=== PATIENT | male | born 1990 | race African-American/Black ===

== ENCOUNTER 2017-01-12 21:00 | Emergency (ER) | payer MEDICAID, OTHER ==
[~2017-01-12] VITALS: Ht 170.2 cm; Wt 75.3 kg
[2017-01-12] MEDS ORDERED: NKM (21:09)
[2017-01-12] MEDS ORDERED: ANUSOL-HC30 GM RC (21:43)
--- NOTE | 2017-01-12 21:43 | Emergency Room Report ---
History of Present Illness General Chief Complaint: Skin Rash/Abscess Source: Patient Present Illness HPI Is a 26-year-old male with no significant past medical history. He presents with a mass and pain to the rectal area. Onset for one day. Denies any fever chills denies any nausea vomiting. He has a history of hemorrhoid and occasionally has blood with wiping. No other complaint. No fever or chills. Worse with sitting. Worse with movement. Allergies: Coded Allergies: No Known Allergies (Unverified , 01/12/17) Patient History Past Medical History: see triage record, old chart reviewed Past Surgical History: none Pertinent Family History: none Social History: Denies: drug use Immunizations: other Reviewed Nursing Documentation: PMH: Agreed, PSxH: Agreed Nursing Documentation-PMH Past Medical History: No History, Except For Hx Seizures: Yes Review of Systems Eye: Denies: blurred vision, eye pain ENT: Denies: ear pain, nose congestion, throat swelling Respiratory: Denies: cough, shortness of breath Cardiovascular: Denies: chest pain, palpitations Gastrointestinal: Denies: abdominal pain, diarrhea, nausea, vomiting Musculoskeletal: Denies: back pain, joint pain Skin: Denies: rash Neurological: Denies: headache, numbness Endocrine: Denies: increased thirst, increased urine Hematologic/Lymphatic: Denies: easy bruising All Other Systems: negative except mentioned in HPI Physical Exam Vital Signs Date Time Temp Pulse Resp B/P Pulse Ox O2 Delivery O2 Flow Rate FiO2 01/12/17 21:05 98.8 112 16 118/75 97 Room Air vital tachycardia Sp02 EP Interpretation: reviewed, normal General Appearance: well appearing, no apparent distress, alert Head: normocephalic, atraumatic Eyes: bilateral eye EOMI, bilateral eye PERRL ENT: hearing grossly normal, normal pharynx Neck: full range of motion, supple, no meningismus Respiratory: chest non-tender, lungs clear, normal breath sounds Cardiovascular #1: regular rate, rhythm, no murmur Gastrointestinal: normal bowel sounds, non tender, no mass, no organomegaly, no bruit, non-distended Rectal: other - Large hemorrhoid at the 3:00 position. Measure about 2 cm. tender to palpation. Musculoskeletal: back normal, gait/station normal, normal range of motion Psychiatric: mood/affect normal Skin: warm/dry Procedures Incision and Drainage Incision and Drainage : Consent: Verbal Site: Buttock Blade Size: 11 I & D Procedure: betadine prep Anesthesia: 1% Lidocaine Volume Anesthetic (ccs): 1 Patient Tolerated: Well Complications: None Progress Area clean with Betadine. Local anesthetic with 1% lidocaine. I made a 1 cm incision and expressed several small thrombosed clots. Patient tolerated procedure without a problem. Medical Decision Making Diagnostic Impression: Primary Impression: Thrombosed external hemorrhoid ER Course Patient with a thrombosed external hemorrhoid. No evidence of abscess. No evidence of deep infection. We'll discharge home. Last Vital Signs Date Time Temp Pulse Resp B/P Pulse Ox O2 Delivery O2 Flow Rate FiO2 01/12/17 21:05 98.8 112 16 118/75 97 Room Air Status: improved Disposition: HOME, SELF-CARE Condition: Stable Scripts Hydrocortisone Hc 2.5% Cream (ANUSOL-HC 2.5% CREAM) Y Cr 30 GM RC BID, #15 GM Prov: ZAY BOWERS M.D. 01/12/17 Referrals: NOT CHOSEN IPA/,REFERRING (PCP) Additional Instructions: Followup with your DrMiroslava in 7 days. You may need a referral to see a colorectal surgeon. Return if symptom worsen. ZAY BOWERS M.D. January 12, 2017 21:43
[2017-01-12 22:07] VITALS: BP 134/85
== END 2017-01-12 21:50 | disposition home or self-care (01) ==
LOC: EMR 21:26
DX: K64.5 Perianal venous thrombosis (principal)
CPT/HCPCS: 10060; 99283

== ENCOUNTER 2017-01-13 04:31 | Emergency (ER) | payer MEDICAID ==
[~2017-01-13] VITALS: Ht 170.2 cm; Wt 75.3 kg
[~2017-01-13 04:31] MED LIST: ANUSOL-HC30 GM RC; NKM
--- NOTE | 2017-01-13 05:18 | Emergency Room Report ---
History of Present Illness General Chief Complaint: Skin Rash/Abscess Source: Patient Present Illness HPI Is a 26-year-old male whom I saw earlier this evening for thrombosed hemorrhoid. He came back because it was bleeding. He has not put anything on it. No packing. Denies any fever chills denies any nausea vomiting. No pain or fever. Allergies: Coded Allergies: No Known Allergies (Unverified , 01/12/17) Patient History Past Medical History: see triage record, old chart reviewed Past Surgical History: none Pertinent Family History: none Social History: Reports: alcohol use Immunizations: other Reviewed Nursing Documentation: PMH: Agreed, PSxH: Agreed Nursing Documentation-PMH Hx Seizures: Yes Review of Systems Eye: Denies: blurred vision, eye pain ENT: Denies: ear pain, nose congestion, throat swelling Respiratory: Denies: cough, shortness of breath Cardiovascular: Denies: chest pain, palpitations Gastrointestinal: Denies: abdominal pain, diarrhea, nausea, vomiting Musculoskeletal: Denies: back pain, joint pain Skin: Denies: rash Neurological: Denies: headache, numbness Endocrine: Denies: increased thirst, increased urine Hematologic/Lymphatic: Denies: easy bruising All Other Systems: negative except mentioned in HPI Physical Exam Vital Signs Date Time Temp Pulse Resp B/P Pulse Ox O2 Delivery O2 Flow Rate FiO2 01/13/17 04:39 98.2 114 18 115/78 98 Room Air vitals normal except for tachycardia Sp02 EP Interpretation: reviewed, normal General Appearance: well appearing, no apparent distress, alert Head: normocephalic, atraumatic Eyes: bilateral eye EOMI, bilateral eye PERRL ENT: hearing grossly normal, normal pharynx Neck: full range of motion, supple, no meningismus Respiratory: chest non-tender, lungs clear, normal breath sounds Cardiovascular #1: regular rate, rhythm, no murmur Gastrointestinal: normal bowel sounds, non tender, no mass, no organomegaly, no bruit, non-distended Rectal: other - A large manager enrollment size hemorrhoid at the 3:00 position. Oozing blood. Small clots. Musculoskeletal: back normal, gait/station normal, normal range of motion Psychiatric: mood/affect normal Skin: warm/dry Procedures Additional Procedure Procedure Narrative Procedure: Suturing of bleeding hemorrhoid Indication: Bleeding hemorrhoid Description: Area clean with Betadine. Local anesthetic of 1% lidocaine with epinephrine. Then took a total of 3 mL. I extended the incision to 2 cm. I expressed small clots. I placed 3 interrupted 6-0 Vicryl sutures around the site of bleeding. Bleeding stopped. Patient tolerated procedure without a problem. No complication. Medical Decision Making Diagnostic Impression: Primary Impression: Hemorrhoid thrombosis ER Course Patient present with bleeding after my excision of thrombosed hemorrhoid. Bleeding stopped after suturing bleeding vessel. Patient tolerated procedure without a problem. No complication. No abscess. Last Vital Signs Date Time Temp Pulse Resp B/P Pulse Ox O2 Delivery O2 Flow Rate FiO2 01/13/17 04:39 98.2 114 18 115/78 98 Room Air Status: improved Disposition: HOME, SELF-CARE Condition: Stable Additional Instructions: Followup with your Dr. in 7 days. Apply pressure if bleeding. Return if worse. ZAY BOWRES M.D. January 13, 2017 05:18
[2017-01-13 05:25] VITALS: BP 115/78
== END 2017-01-13 05:25 | disposition home or self-care (01) ==
LOC: EMR 04:45
DX: K64.5 Perianal venous thrombosis (principal)
CPT/HCPCS: 46083; 99284; Z7502

== ENCOUNTER 2018-01-09 01:23 | Emergency (ER) | payer OTHER ==
[2018-01-09] VITALS (18 sets, daily range): BP systolic 99–135; BP diastolic 49–78
[~2018-01-09] VITALS: Ht 162.6 cm; Wt 72.6 kg
[~2018-01-09 01:23] MED LIST changes: +Haloperidol 5mg/ml Inj ONE
[2018-01-09] MEDS ORDERED: Haloperidol 5mg/ml Inj IM ONE (01:30)
[2018-01-09] MEDS ORDERED: DiphenhydrAMINE 50mg/ml Inj IVP ONE (01:30)
--- NOTE | 2018-01-09 01:34 | Emergency Room Report ---
History of Present Illness General Chief Complaint: Behavioral Complaint Source: EMS Present Illness HPI This at approximately 29-year-old Afro-[place]ub[place] male brought in by EMS with police escort for agitated and aggressive behavior. He was in the street in front of apartment complex yelling. He was very aggressive and had to be restrained and given 10 mg of Versed IM. They did not touch him. Unable to get any other history from this patient. Allergies: Coded Allergies: ONION (Verified Allergy, Unknown, 01/09/18) Patient History Past Medical History: see triage record, old chart reviewed, unable to obtain Past Surgical History: unable to obtain Pertinent Family History: unable to obtain Immunizations: other Reviewed Nursing Documentation: PMH: Agreed; PSxH: Agreed Nursing Documentation-PMH Past Medical History: Deferred Review of Systems All Other Systems: limited - Is secondary to his behavior Physical Exam vitals with tachycardia Sp02 EP Interpretation: reviewed, normal General Appearance: alert, other - Extremely agitated. Yelling. Head: normocephalic, atraumatic Eyes: bilateral eye PERRL, bilateral eye EOMI ENT: hearing grossly normal, normal pharynx Neck: full range of motion, supple, no meningismus Respiratory: chest non-tender, lungs clear, normal breath sounds Cardiovascular #1: regular rate, rhythm, no murmur, tachycardia Gastrointestinal: normal bowel sounds, non tender, no mass, no organomegaly, no bruit, non-distended Musculoskeletal: back normal, normal range of motion Neurologic: grossly normal Psychiatric: other - Agitated Skin: warm/dry, diaphoresis Medical Decision Making Diagnostic Impression: Primary Impression: Psychosis Qualified Codes: F23 - Brief psychotic disorder Additional Impressions: Methamphetamine abuse SAVI (acute kidney injury) Rhabdomyolysis Qualified Codes: M62.82 - Rhabdomyolysis ER Course This patient presents with acute psychosis secondary to drug abuse. He had to be restrained and sedated. After several hours he is better now. More cooperative. He is under arrest by police for assault with a deadly weapon. 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 Heart rate is improved. Is no longer tachycardic. Blood pressure better also. Is not suicidal or homicidal. This patient is a chronic risk of self injury due to poor impulse control, limited coping skills, and judgment intermittently impaired by intoxication. I believe that the available clinical evidence to suggest that these characteristics derived primarily from personality disorder and are likely very stable over time. Hospitalization would likely attenuate risk of self-harm only during prison period, without lasting risk reduction. Serious self-harm, while possible, would likely be inadvertent, and because of impulsivity, and foreseeable. For these reasons, I do not believe hospitalization would provide meaningful reduction in risk of self-harm. Lab Results Impression labs with elevated CK Status: improved Disposition: D/C TO LAW ENFORCEMENT IN [facility] Condition: Stable Patient Instructions: Self-Destructive Behavior Additional Instructions: Stop using drugs. Follow-up with your DrMiroslava in 2-3 days. Return if worse. ZAY BOWERS M.D. January 09, 2018 01:34
[2018-01-09 01:58] LABS: APPEARANCE,URINE CLEAR; BILIRUBIN, URINE NEGATIVE (NEGATIVE); GLUCOSE, URINE (UA) NEGATIVE (NEGATIVE); KETONES,URINE 2+ (NEGATIVE); LEUKOCYTE ESTERASE ,URINE 1+ (NEGATIVE); NITRITE,URINE NEGATIVE (NEGATIVE); PH,URINE 5 (4.5-8.0); PROTEIN,URINE 2+ (NEGATIVE); UROBILINOGEN,URINE 1 MG/DL (0.0-1.0)
[2018-01-09 02:05] LABS: HEMATOCRIT 46.8 % (42.0-52.0); HEMOGLOBIN 16.1 G/DL (14.2-18.0); MEAN CORPUSCULAR VOLUME 92 FL (80-99); PLATELET COUNT 296 K/UL (150-450); RED BLOOD COUNT 5.08 M/UL (4.70-6.10); RED CELL DISTRIBUTION WIDTH 10.7 % (11.6-14.8); WHITE BLOOD COUNT 12.1 K/UL (4.8-10.8)
[2018-01-09 02:06] LABS: COLOR,URINE YELLOW
[2018-01-09 02:06] LABS: ANION GAP 21 mmol/L (5-15); BLOOD UREA NITROGEN 19 mg/dL (7-18); CALCIUM 10.3 MG/DL (8.5-10.1); CARBON DIOXIDE 20 MMOL/L (21-32); CHLORIDE 100 MMOL/L (98-107); CREATININE 2.2 MG/DL (0.55-1.30); POTASSIUM 4.1 MMOL/L (3.5-5.1); SODIUM 141 MMOL/L (136-145)
[2018-01-09 02:19] LABS: ALANINE AMINOTRANSFERASE 26 U/L (12-78); ALBUMIN 4.8 G/DL (3.4-5.0); ALKALINE PHOSPHATASE 72 U/L (46-116); ASPARTATE AMINO TRANSFERASE 42 U/L (15-37); BILIRUBIN,TOTAL 1.2 MG/DL (0.2-1.0); CKMB 5.6 NG/ML (0.0-3.6); CREATINE KINASE 1817 U/L (26-308)
[2018-01-09 02:24] LABS: BILIRUBIN,DIRECT 0.2 MG/DL (0.0-0.3)
[2018-01-09] MEDS ORDERED: cefTRIAXone 1 GM in NS 55 ML IVPB ONE (03:15)
--- NOTE | 2018-01-09 06:37 | Emergency Room Report ---
Physical Exam Vital Signs Date Time Temp Pulse Resp B/P (MAP) Pulse Ox O2 Delivery O2 Flow Rate FiO2 01/09/18 01:24 97.7 124 33 127/66 94 Room Air 97.7 01/09/18 01:58 2.0 Medical Decision Making Restraint Attestation I, Ezequiel Caballero MD, have personally evaluated this patient. Laboratory tests have been reviewed and addressed accordingly. The patient is deemed to present a danger to themselves and/or others. This is based on the exam, history ( provided by patient, EMS/[employer] and/or family) and observed or reported behavior. Attempts for non-invasive measures have been considered and/or attempted, however, have been futile. It is in the best interest of the nursing staff, the patient, and others involved in this patient's care that behavioral restraints be applied. Patient evaluation reveals the following: pt is combative, lunging at staff. Medical: Substance Abuse Reaction to Intervention: Improved Restraint Reassesment On reassessment of the patient, the patient does not require restraints for the safety of the patient, the nursing staff and others involved in the care of this patient. Diagnostic Impression: Primary Impression: Psychosis Additional Impressions: Rhabdomyolysis Methamphetamine abuse SAVI (acute kidney injury) Last Vital Signs Date Time Temp Pulse Resp B/P (MAP) Pulse Ox O2 Delivery O2 Flow Rate FiO2 01/09/18 05:28 102 19 121/78 100 Room Air 01/09/18 05:28 98.2 01/09/18 03:13 2.0 Disposition: LAW ENFORCEMENT IN [facility] Condition: Stable Referrals: NOT CHOSEN IPA/,REFERRING (PCP) Departure Forms: Longterm Clearance Patient Instructions: Self-Destructive Behavior Additional Instructions: Stop using drugs. Follow-up with your DrMiroslava in 2-3 days. Return if worse. EZEQUIEL CABALLERO M.D. January 09, 2018 06:37
== END 2018-01-09 05:43 ==
LOC: EDBD 01:23 → EMR 01:34 → MERGE 01:34 → EMR 05:43
DX: F29 Unspecified psychosis not due to a substance or known physiological condition (principal); F15.10 Other stimulant abuse, uncomplicated; N17.9 Acute kidney failure, unspecified; M62.82 Rhabdomyolysis
CPT/HCPCS: 36415; 80053; 80307; 81003; 82248; 82550; 82553; 85025; 87086; 96372; 96374; 96375; 99283; G0480; J0696; J1630; 80329